=== PATIENT | male | born 1980 | race Caucasian/White ===

== ENCOUNTER 2020-06-21 20:03 | Emergency (ER) | payer BC, OTHER ==
[~2020-06-21] VITALS: Ht 188 cm; Wt 79.4 kg
[2020-06-21 20:15] VITALS: BP 131/80
== END 2020-06-21 20:43 | disposition home or self-care (01) ==
LOC: ER 20:03
DX: S01.511A Laceration without foreign body of lip, initial encounter (principal); W20.8XXA Other cause of strike by thrown, projected or falling object, initial encounter; Y93.89 Activity, other specified; Y92.89 Other specified places as the place of occurrence of the external cause; Y99.8 Other external cause status